=== PATIENT | male | born 1980 | race Caucasian/White ===

== ENCOUNTER 2017-12-21 12:58 | Emergency (ER) | payer OTHER, SELFPAY ==
[2017-12-21 12:59] VITALS: BP 128/96; PULSE 63; RESP 19; TEMP 36.9; O2SAT 98; BMI 26.1
--- NOTE | 2017-12-21 13:10 | ED.VISSUMM ---
- ER Visit Summary Date of Service: 12/21/17 Chief Complaint: Acute focal left-sided facial seizure History of Present Illness: The patient is a 37 M history of colon CA with lung and brain metastases diagnosed in 2014. Approximately 2 weeks ago the [facility] had gamma knife for his brain metastases. 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 He is currently on Keppra. Today he was in his car with his significant other and had a focal left-sided facial seizure. He is on Lovenox currently from a recent PE but did not fall or hit his head. Prior to the seizure he felt fine. He denies any headaches. This was similar to his prior seizures. He denies any recent illness. Physical Examination: Young male no acute distress. Significant other bedside. H EENT exam pupils are round reactive light. Extra motions are intact. No facial droop. Normal speech. He has lost all his hair. Neck nontender no meningismus. Lungs clear to auscultation bilaterally. Heart regular rhythm no murmur. Abdomen soft and nontender. Patient moving all 4 extremities. They are neurovascularly intact. 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 Dorsi and plantar flexion intact. Normal motor strength and sensation in both upper and lower extremities. Fingertip to nose within normal limits bilaterally. Neurologically is awake alert with no focal motor deficits. NIH currently is 0. Test Results: CBC normal. White count of 8. Hemoglobin 13. Electrolytes unremarkable gap of a normal creatinine. Patient has known brain metastases. He has no headache and no neurological findings at this time we deferred a CAT scan at this time. Emergency Department Course and Treatment: Patient observed with seizure precautions. Does take home Ativan for anxiety and was given a dose here. On repeat exam at 1452 the patient is doing well. His neurologic exam remains normal. He and his are comfortable with him being discharged to home. He has scheduled follow up with Dr. Underwood later this week. Treatment Plan: Continue current medications. Return if recurrent seizures, headache or feeling worse. Disposition: Discharge Impression: Recurrent breakthrough seizure History of colon CA with metastases to his liver, lung and brain. This note was generated with [employer] dictation software. It may contain incorrect words, spelling, and punctuation that were not noted in review of the chart prior to signing ED Disposition - Plan for ED Patient: Chief Complaint: Seizure Referrals: Kenyatta Cole [Primary Care Provider] -
--- NOTE | 2017-12-21 13:14 | ED.DCSUM_ITS ---
- ER Visit Summary Date of Service: 12/21/17 Chief Complaint: Acute focal left-sided facial seizure History of Present Illness: The patient is a 37 M history of colon CA with lung and brain metastases diagnosed in 2014. Approximately 2 weeks ago the [facility] had gamma knife for his brain metastases. 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 He is currently on Keppra. Today he was in his car with his significant other and had a focal left-sided facial seizure. He is on Lovenox currently from a recent PE but did not fall or hit his head. Prior to the seizure he felt fine. He denies any headaches. This was similar to his prior seizures. He denies any recent illness. Physical Examination: Young male no acute distress. Significant other bedside. H EENT exam pupils are round reactive light. Extra motions are intact. No facial droop. Normal speech. He has lost all his hair. Neck nontender no meningismus. Lungs clear to auscultation bilaterally. Heart regular rhythm no murmur. Abdomen soft and nontender. Patient moving all 4 extremities. They are neurovascularly intact. He has equal symmetrical cap sizer strength. Dorsi and plantar flexion intact. Normal motor strength and sensation in both upper and lower extremities. Fingertip to nose within normal limits bilaterally. Neurologically is awake alert with no focal motor deficits. NIH currently is 0. Test Results: CBC normal. White count of 8. Hemoglobin 13. Electrolytes unremarkable gap of a normal creatinine. Patient has known brain metastases. He has no headache and no neurological findings at this time we deferred a CAT scan at this time. Emergency Department Course and Treatment: Patient observed with seizure precautions. Does take home Ativan for anxiety and was given a dose here. On repeat exam at 1452 the patient is doing well. His neurologic exam remains normal. He and his are comfortable with him being discharged to home. He has scheduled follow up with Dr. Underwood later this week. Treatment Plan: Continue current medications. Return if recurrent seizures, headache or feeling worse. Disposition: Discharge Impression: Recurrent breakthrough seizure History of colon CA with metastases to his liver, lung and brain. This note was generated with [employer] dictation software. It may contain incorrect words, spelling, and punctuation that were not noted in review of the chart prior to signing ED Disposition - Plan for ED Patient: Chief Complaint: Seizure Referrals: Kenyatta Cole [Primary Care Provider] -
[2017-12-21 13:25] LABS: Absolute Lymphocyte Count 0.53 X10^3/ul (0.83-4.51); Absolute Neutrophil Count 7.1 X10^3/uL (2.0-7.7); Eosinophil# 0.05 X10^3/uL; Eosinophils% 0.6 % (0-5); Hematocrit 40.4 % (40-54); Hemoglobin 13.3 g/dl (13.0-16.5); Lymphocyte # 0.53 X10^3/ul (4.0); Lymphocyte % 6.4 % (19-41); Mean Corp Hgb Conc 32.9 g/gl (32-36); Mean Corpuscular Hgb 30.4 pg (27.0-32.0); Mean Corpuscular Volume 92.4 fL (80-94); Mean Platelet Vol. 8.3 fl (6.2-12.0); Monocyte# 0.64 X10^3/uL; Monocyte% 7.7 % (0-10); Neutrophil # 7.07 X10^3/uL (2.7-7.7); Neutrophil % 84.8 % (47-70); Platelet Count 179 K/mm3 (150-450); RBC Distribution Width CV 14.9 % (11.6-14.6); RBC Distribution Width SD 50.6 fl (35.1-43.9); Red Blood Count 4.37 M/mm3 (4.6-6.2); White Blood Count 8.3 K/mm3 (4.4-11.0)
[2017-12-21 13:28] LABS: Differential Indicated SCAN CRITERIA MET; POSITIVE COUNT NO; POSITIVE DIFFERENTIAL YES; POSITIVE MORPHOLOGY YES
[2017-12-21 13:36] LABS: BUN 15 mg/dL (7-18); Creatinine, Serum 0.76 mg/dL (0.70-1.30); Estimated Creatinine Clearance 131.25 ml/min; Glucose 108 mg/dL (74-106)
[2017-12-21 13:37] LABS: Anion Gap 8 (5-15); BUN/Creat Ratio 19.8 RATIO (10-20); Chloride 102 mmol/L (98-107); EST Glomerular Filtration Rate 124 mL/min (>60); Est Glom Filt Rate - Afr Amer 150 mL/min (>60); Potassium 3.6 mmol/L (3.5-5.1); Sodium Level 140 mmol/L (136-145)
[2017-12-21] MEDS: LORazepam 1 MG Tablet PO (14:18)
--- NOTE | 2017-12-21 14:55 | ED.DEP ---
ED Disposition - Plan for ED Patient: Disposition: Home or Assisted Living Chief Complaint: Seizure Instructions: ED Seizure Recurrent Referrals: Shahab Underwood DO [STAFF PHYSICIAN] - Keep Jl appointment Additional Instructions: Continue current medications. Return to the ER if recurrent seizures or severe headache.
[2017-12-21 15:05] VITALS: BP 111/79; PULSE 78; RESP 18
== END 2017-12-21 15:07 | disposition home or self-care (01) ==
PROVIDERS: Emergency Provider Emergency Medicine; Family Provider Internal Medicine; PCP Internal Medicine
DX: G40.109 Localization-related (focal) (partial) symptomatic epilepsy and epileptic syndromes with simple partial seizures, not intractable, without status epilepticus (principal); C78.7 Secondary malignant neoplasm of liver and intrahepatic bile duct; C78.00 Secondary malignant neoplasm of unspecified lung; C79.31 Secondary malignant neoplasm of brain; Z85.038 Personal history of other malignant neoplasm of large intestine; Z79.899 Other long term (current) drug therapy
CPT/HCPCS: 80048; 85025; 99285; A4216